=== PATIENT | male | born 1985 | race Caucasian/White ===

== ENCOUNTER 2020-12-21 17:49 | Emergency (ER) | payer OTHER ==
[~2020-12-21] VITALS: Ht 188 cm; Wt 76.7 kg
[2020-12-21 17:55] VITALS: BP 120/91
[2020-12-21] MEDS ORDERED: KETOROLAC 60 MG/2 ML VIAL IM ONE (18:10)
[2020-12-21 19:10] VITALS: BP 120/91
== END 2020-12-21 19:10 | disposition home or self-care (01) ==
LOC: MED 17:49
DX: S42.001A Fracture of unspecified part of right clavicle, initial encounter for closed fracture (principal); S43.101A Unspecified dislocation of right acromioclavicular joint, initial encounter; Z88.8 Allergy status to other drugs, medicaments and biological substances; V00.131A Fall from skateboard, initial encounter; Y93.89 Activity, other specified; Y92.89 Other specified places as the place of occurrence of the external cause; Y99.8 Other external cause status
CPT/HCPCS: 73000; 73030; 96372; 99284; J1885